=== PATIENT | male | born 1945 | race Two or more races ===

== ENCOUNTER 2018-06-19 12:36 | Inpatient (IN) | payer MEDICARE, MEDICAID ==
[~2018-06-19] VITALS: Ht 167.6 cm; Wt 73.5 kg
--- NOTE | 2018-06-19 12:36 | NUR ---
BIB FOR CHEST PAIN SINCE LAST NIGHT STATED "ABOUT 3AM", TO ER BED 4, HOOKED TO MONITOR, CHANGED TO GWN, RECONSTRUCTIVE SURGEON AT BEDSIDE. AWAITING MD ELIZABETH
--- NOTE | 2018-06-19 13:06 | NUR ---
DR BARROS AT BEDSIDE
[2018-06-19 13:22] LABS: BASOPHILS % (AUTO) 0.5 % (0.0-2.0); EOSINOPHILS % (AUTO) 1.3 % (0.0-6.0); HEMATOCRIT 52 % (39-51); HEMOGLOBIN 17.4 g/dL (13.5-17.5); LYMPHOCYTES # (AUTO) 1.8 /CMM (0.8-4.8); LYMPHOCYTES % (AUTO) 25.2 % (20.0-44.0); MEAN CORPUSCULAR HGB CONC 34 g/dl (31.0-36.0); MEAN CORPUSCULAR VOLUME 91 fL (80-96); MONOCYTES # (AUTO) 0.5 /CMM (0.1-1.30); MONOCYTES % (AUTO) 6.4 % (2.0-12.0); NEUTROPHILS # (AUTO) 4.7 /CMM (1.8-8.9); NEUTROPHILS % (AUTO) 66.6 % (43.0-81.0); PLATELET COUNT (AUTO) 203 /CMM (150-450); RED BLOOD CELL COUNT(AUTO) 5.71 MIL/uL (4.5-6.0); WHITE BLOOD COUNT (AUTO) 7.1 K/uL (4.3-11.0)
[2018-06-19 13:28] LABS: CALCIUM, SERUM 8.7 mg/dL (8.5-10.1); CARBON DIOXIDE 31 mmol/L (21-32); CHLORIDE 104 mmol/L (98-107); CREATININE 1.3 mg/dL (0.6-1.3); GLUCOSE 107 mg/dL (74-106); SODIUM SERUM 140 mmol/L (136-145); UREA NITROGEN, BLOOD 16 mg/dL (7-18)
[2018-06-19] MEDS ORDERED: NITROGLYCERIN 0.4 MG/TAB BOTTLE ONE (13:29)
[2018-06-19] MEDS ORDERED: MORPHINE SULFATE INJ 4 MG/ML DISP.SYRIN ONE (13:29)
[2018-06-19] MEDS ORDERED: ONDANSETRON HCL/PF 4 MG/2 ML VIAL ONE (13:29)
[2018-06-19] MEDS ORDERED: ASPIRIN 325 MG TABLET ONE (13:30)
[2018-06-19] MEDS ORDERED: METOPROLOL TARTRATE 50 MG TABLET ONE (13:40)
[2018-06-19] MEDS ORDERED: IV NS 0.9% 500 ML BAG IV ONE (14:00)
[2018-06-19] MEDS ORDERED: METOPROLOL TARTRATE 25 MG TABLET PO ONE (14:00)
[2018-06-19] MEDS ORDERED: ASPIRIN 325 MG TABLET PO ONE (14:00)
[2018-06-19] MEDS ORDERED: ONDANSETRON HCL/PF 4 MG/2 ML VIAL IVP ONE (14:00)
[2018-06-19] MEDS ORDERED: NITROGLYCERIN 0.4 MG/TAB BOTTLE SL ONE (14:00)
[2018-06-19] MEDS ORDERED: MORPHINE SULFATE INJ 2 MG/ML DISP.SYRIN IV ONE (14:00)
[2018-06-19] MEDS ORDERED: OLME20TA13 PO (14:06)
--- NOTE | 2018-06-19 14:45 | NUR ---
PT WHEELED OUT VIA [facility] FOR CTA
[2018-06-19] MEDS ORDERED: CT SWABBABLE VALVE TRANS SET 1 EA INFUS.SET MC ONE (14:50)
[2018-06-19] MEDS ORDERED: IOHEXOL-350 100 ML VIAL IV ONE (14:50)
[2018-06-19] MEDS ORDERED: IV NS 0.9% 250 ML IV ONE (14:50)
[2018-06-19] MEDS ORDERED: KETOROLAC TROMETHAMINE INJ 30 MG/ML VIAL IV ONE (15:00)
[2018-06-19] MEDS ORDERED: KETOROLAC TROMETHAMINE 15 MG/ML VIAL ONE (15:00)
--- NOTE | 2018-06-19 15:19 | NUR ---
REPORT GIVEN TO KIARA OWENS OF TELE UNIT
--- NOTE | 2018-06-19 15:51 | NUR ---
CALLED [facility], HAD ALEJANDRO STOUT PAGED
[2018-06-19 16:00] VITALS: BP 147/87
--- NOTE | 2018-06-19 16:19 | NUR ---
RAMON WANG AT BEDSIDE
[2018-06-19 16:45] VITALS: BP 147/87
[2018-06-19] MEDS ORDERED: MORPHINE SULFATE INJ 2 MG/ML DISP.SYRIN IV PRN (17:00)
[2018-06-19] MEDS ORDERED: ONDANSETRON HCL/PF 4 MG/2 ML VIAL IVP PRN (17:00)
[2018-06-19] MEDS ORDERED: NITROGLYCERIN 0.4 MG/TAB BOTTLE SL PRN (17:00)
[2018-06-19] MEDS ORDERED: HYDROCODONE/APAP 5/325MG 1 EACH TABLET PO PRN (17:00)
[2018-06-19] MEDS ORDERED: ACETAMINOPHEN 325 MG TABLET PO PRN (17:00)
[2018-06-19] MEDS ORDERED: Z GUARD REMEDY 2 OZ OINT TP PRN (17:00)
[2018-06-19] MEDS ORDERED: MAG HYDROX/AL HYDROX/SIMETH 30 ML UDC PO PRN (17:00)
[2018-06-19] MEDS ORDERED: MAGNESIUM HYDROXIDE 30 ML UDC PO PRN (17:00)
--- NOTE | 2018-06-19 17:20 | NUR ---
MOBILE LOUNGE DRIVER ADMITTING NOTES RECEIVED PT FROM ER VIA [facility] WITH 2 NURSE ASSIST. ARRIVED AT THE UNIT AT 1630. PT ABLE TO WALK FROM [facility] TO BED. PT A/O X 4, URDU SPEAKING, ABLE TO UNDERSTAND AND SPEAK A LITTLE BIT OF WOLOF. TOLERATING RA, WITH NO ACUTE RESPIRATORY DISTRESS NOTED. PT DENIES PAIN AT THIS MOMENT. DENIES CHEST PAIN AND N/V. PT ACCOMPANIED BY SPOUSE. ON TELEMONITORING NSR WITH OCCASIONAL PVCS, HR OF 63. PT REFUSED FOR SKIN TO BE ASSESSED AND CLAIMED HE HAS INTACT SKIN, NO ANY KINDS OF WOUND. EXPLAINED PER FACILITY PROTOCOL AND STILL REFUSED. PIV TO LAC G20, FLUSHED WITH NS, INTACT AND OPERATIONAL. ADMISSION HISTORY/ASSESSMENT PROVIDED BY PT AND SPOUSE BEDSIDE. ALL NEEDS ATTENDED. MD/BUTCHER MEAT CN AWARE PT IN THE UNIT, PLACED ORDERS. INVENTORY LIST FILED IN THE CHART. PT'S BED KEPT IN LOWEST, LOCKED POSITION WITH SRX2. KEPT CALL LIGHT AND FLUIDS WITHIN REACH. WILL CONTINUE TO MONITOR.
--- NOTE | 2018-06-19 19:00 | NUR ---
CLOTHING MANAGER CLOSING NOTES PT IN BED, SITTING ON THE EDGE OF THE BED. A/O X 4. 3 FAMILY MEMBERS PRESENT BEDSIDE. TOLERATING RA, WITH NO ACUTE RESPIRATORY DISTRESS NOTED. PT DENIES PAIN AT THIS MOMENT. DENIES CHEST PAIN AND N/V. ON TELEMONITORING NSR WITH OCCASIONAL PVCS, HR OF 61. PIV TO LAC G20, FLUSHED WITH NS, INTACT AND OPERATIONAL. ALL NEEDS ATTENDED. PT'S BED KEPT IN LOWEST, LOCKED POSITION WITH SRX2. KEPT CALL LIGHT AND FLUIDS WITHIN REACH. ENDORSED TO GROCERY MANAGER NURSE FOR MILA.
--- NOTE | 2018-06-19 19:15 | NUR ---
RN Notes Received patient awake, alert and oriented x4, sitting at the edge of the bed with family at bedside. Denies pain and any discomfort at this time. On room air and tolerated well. IV access on left forearm patent and intact. Patient is ambulatory with steady gait. Safety measures and fall precaution in place with call light within reach. Will continue to monitor patient.
[2018-06-19 20:00] VITALS: BP 123/74
[2018-06-19 22:00] VITALS: BP 123/74
[2018-06-20 04:00] VITALS: BP 135/76
--- NOTE | 2018-06-20 06:46 | NUR ---
RN Notes Patient slept well overnight, vital signs stable. Denies pain , nausea and vomiting. Tele monitor reads sinus cecil with heart rate at 56. Ambulate to the bathroom with steady gait, voiding well. Patient stable overnight.
--- NOTE | 2018-06-20 06:54 | NUR ---
RN Notes Seen and examined by Dr Tejada, new orders received. Tele d/c'd and patient for CT angio heart with 3D image, patient aware. Noted and carried out
[2018-06-20 07:33] LABS: BASOPHILS % (AUTO) 0.6 % (0.0-2.0); EOSINOPHILS % (AUTO) 2.5 % (0.0-6.0); HEMATOCRIT 46 % (39-51); HEMOGLOBIN 15.7 g/dL (13.5-17.5); LYMPHOCYTES # (AUTO) 2.2 /CMM (0.8-4.8); LYMPHOCYTES % (AUTO) 33.2 % (20.0-44.0); MEAN CORPUSCULAR HGB CONC 34 g/dl (31.0-36.0); MEAN CORPUSCULAR VOLUME 89 fL (80-96); MONOCYTES # (AUTO) 0.5 /CMM (0.1-1.30); MONOCYTES % (AUTO) 7.4 % (2.0-12.0); NEUTROPHILS # (AUTO) 3.8 /CMM (1.8-8.9); NEUTROPHILS % (AUTO) 56.3 % (43.0-81.0); PLATELET COUNT (AUTO) 170 /CMM (150-450); WHITE BLOOD COUNT (AUTO) 6.7 K/uL (4.3-11.0)
[2018-06-20 07:49] LABS: CALCIUM, SERUM 8.2 mg/dL (8.5-10.1); CARBON DIOXIDE 27 mmol/L (21-32); CHLORIDE 106 mmol/L (98-107); CREATININE 1.1 mg/dL (0.6-1.3); GLUCOSE 89 mg/dL (74-106); PHOSPHORUS 3.5 mg/dL (2.5-4.9); POTASSIUM 4.1 mmol/L (3.5-5.1); SODIUM SERUM 140 mmol/L (136-145); UREA NITROGEN, BLOOD 18 mg/dL (7-18)
[2018-06-20 07:54] LABS: CHOLESTEROL 190 mg/dL (<200); HDL CHOLESTEROL 57 mg/dL (40-60); LDL 127 mg/dL (0-99); THYROID STIMULATING HORMONE 2.144 uIU/mL (0.358-3.74); TRIGLYCERIDES 57 mg/dL (30-150)
[2018-06-20 08:00] VITALS: BP 135/88
[2018-06-20] MEDS ORDERED: ASPIRIN 81 MG TAB.CHEW PO SCH (09:00)
[2018-06-20] MEDS ORDERED: ATORVASTATIN 10 MG TABLET PO SCH (09:00)
[2018-06-20] MEDS ORDERED: LOSARTAN POTASSIUM 50 MG TABLET PO SCH (09:00)
[2018-06-20 09:49] VITALS: BP 135/88
[2018-06-20] MEDS ORDERED: IOHEXOL-350 100 ML VIAL IV ONE ×2 (11:29→12:11)
[2018-06-20] MEDS ORDERED: NITROGLYCERIN 0.4 MG/TAB BOTTLE ONE (11:29)
[2018-06-20] MEDS ORDERED: IV NS 0.9% 250 ML IV ONE (11:30)
[2018-06-20] MEDS ORDERED: METOPROLOL TARTRATE INJ 5 MG/5 ML AMPUL ONE ×2 (11:30→12:17)
[2018-06-20] MEDS ORDERED: CT SWABBABLE VALVE TRANS SET 1 EA INFUS.SET MC ONE (11:31)
--- NOTE | 2018-06-20 11:45 | NUR ---
RN MS OPENING NOTES Patient remains on room air, no sob noted. Patient transferred to [facility]. Patient denies pain, patient signed the CT angiogram with 3d image. Patient remains a/o x4. Patient's bed at the lowest setting, call light within reach.
[2018-06-20] MEDS ORDERED: ATOR20TA PO (16:22)
[2018-06-20] MEDS ORDERED: ASPI-1169 PO (16:22)
--- NOTE | 2018-06-20 18:29 | NUR ---
LICENSED PRACTICAL NURSE INSTRUCTOR NOTES Patient discharged on room air, no sob noted. Vital signs stable. Patient's belonging is with him at this time, cell phone, clothing, and 1 gold ring. Patient denies any pain at this time. Patient has the discharge paper works with instructions from his physician, and he also has the prescription for his medications. All questions answered, and patient and understands the discharge instruction from their PCP.
== END 2018-06-20 17:26 | disposition home or self-care (01) | DRG 303 ==
LOC: ER 12:38 → TELE 15:00 → MED 06-20 07:30
PROVIDERS: ADMIT Nurse Practitioner Acute Care; ATTEND Nurse Practitioner Acute Care
DX: I25.10 Atherosclerotic heart disease of native coronary artery without angina pectoris (principal); J98.11 Atelectasis; R07.9 Chest pain, unspecified; I11.0 Hypertensive heart disease with heart failure; I50.810 Right heart failure, unspecified; K80.20 Calculus of gallbladder without cholecystitis without obstruction; E78.5 Hyperlipidemia, unspecified; I27.20 Pulmonary hypertension, unspecified; R91.8 Other nonspecific abnormal finding of lung field
CPT/HCPCS: 36415; 71045-TC; 75574; 80048-TC; 80061-TC; 83735-TC; 84100-TC; 84443-TC; 84484-TC; 85025-TC; 85378-TC; 85730-TC; 87081-TC; 93307-TC; G0378; J1885; J2270; J2405; J3490; J7040; J7050; Q9967

== ENCOUNTER 2019-12-05 18:19 | Inpatient (IN) | payer MEDICARE, OTHER ==
[~2019-12-05] VITALS: Ht 170.2 cm; Wt 65.8 kg
[~2019-12-05 18:19] MED LIST: ASPI-1169 PO; ATOR20TA PO; OLME20TA13 PO
--- NOTE | 2019-12-05 18:28 | NUR ---
PT BIBRA FROM HOME TO ER BED 03 C/O SUDDEN ONSET MIDSTERNAL CHESTPAIN THAT STARTED 2 HOURS AGO. PT STATES WORST WHEN BENDING OVER. PT IS PAIN FREE AUDIO VISUAL DESIGN ENGINEER AFTER GETTING ASPIRIN AND NITRO AUDIO VISUAL DESIGN ENGINEER. PLACED ON MONITOR. AWAITING MD ELIZABETH.
--- NOTE | 2019-12-05 18:30 | NUR ---
DR BOBBY AT BEDSIDE FOR EVAL.
[2019-12-05 18:51] LABS: BASOPHILS % (AUTO) 0.4 % (0.0-2.0); EOSINOPHILS % (AUTO) 1.5 % (0.0-6.0); HEMATOCRIT 42 % (39-51); HEMOGLOBIN 13.7 g/dL (13.5-17.5); LYMPHOCYTES # (AUTO) 1.4 /CMM (0.8-4.8); LYMPHOCYTES % (AUTO) 15.9 % (20.0-44.0); MEAN CORPUSCULAR HGB CONC 33 g/dl (31.0-36.0); MEAN CORPUSCULAR VOLUME 91 fL (80-96); MONOCYTES # (AUTO) 0.7 /CMM (0.1-1.30); MONOCYTES % (AUTO) 7.5 % (2.0-12.0); NEUTROPHILS # (AUTO) 6.6 /CMM (1.8-8.9); NEUTROPHILS % (AUTO) 74.7 % (43.0-81.0); PLATELET COUNT (AUTO) 166 /CMM (150-450); RED BLOOD CELL COUNT(AUTO) 4.65 MIL/uL (4.5-6.0); WHITE BLOOD COUNT (AUTO) 8.9 K/uL (4.3-11.0)
[2019-12-05 18:57] LABS: CALCIUM, SERUM 8.5 mg/dL (8.5-10.1); CARBON DIOXIDE 31 mmol/L (21-32); CHLORIDE 102 mmol/L (98-107); CREATININE 1.2 mg/dL (0.6-1.3); GLUCOSE 114 mg/dL (74-106); SODIUM SERUM 139 mmol/L (136-145); UREA NITROGEN, BLOOD 22 mg/dL (7-18)
[2019-12-05] MEDS ORDERED: ASPIRIN 325 MG TABLET PO ONE (19:00)
[2019-12-05 19:10] LABS: ALANINE AMINOTRANSFERASE 48 U/L (12-78); ALBUMIN 3.1 g/dL (3.4-5.0); ALKALINE PHOSPHATASE 69 U/L (46-116); ASPARTATE AMINOTRANSFERASE 32 U/L (15-37); B-TYPE NATRIURETIC PEPTIDE 176 PG/ML (0-125); BILIRUBIN,DIRECT 0.2 mg/dL (0.0-0.2); BILIRUBIN,TOTAL 1.2 mg/dL (0.2-1.0); TOTAL PROTEIN, SERUM 6.6 g/dL (6.4-8.2)
[2019-12-05] MEDS ORDERED: CARV3.122 PO (19:27)
[2019-12-05] MEDS ORDERED: ASPI-1420 PO (19:27)
[2019-12-05] MEDS ORDERED: ATOR40TA PO (19:27)
[2019-12-05] MEDS ORDERED: TICA90TA PO (19:27)
[2019-12-05] MEDS ORDERED: DOCU-141 PO (19:27)
[2019-12-05] MEDS ORDERED: LISI40TA4 PO (19:27)
--- NOTE | 2019-12-05 19:36 | NUR ---
PT AAOX4, VSS,RESPIRATIONS EVEN AND UNLABORED ON RA W/ NAD NOTED. PT CONNECTED TO THE BAKER TEST AND POX. CALL LIGHT WITHIN REACH
--- NOTE | 2019-12-05 19:40 | NUR ---
REPORT GIVEN TO AMERICA OWENS FOR MILA.
--- NOTE | 2019-12-05 20:51 | NUR ---
COVID SWAB COLLECTED AND SENT TO LAB
--- NOTE | 2019-12-05 21:12 | NUR ---
REC'D NEG COVID RESULTS
--- NOTE | 2019-12-05 21:46 | NUR ---
PT TRANSFERRED TO ROOM VIA ACLS PROTOCOL
[2019-12-05 21:57] VITALS: BP 168/87
[2019-12-05 22:00] VITALS: BP 168/87
[2019-12-05] MEDS ORDERED: MAGNESIUM HYDROXIDE 30 ML UDC PO PRN (22:00)
[2019-12-05] MEDS ORDERED: ACETAMINOPHEN 325 MG TABLET PO PRN (22:00)
[2019-12-05] MEDS: CARVEDILOL 3.125 MG TABLET PO SCH (22:00)
[2019-12-05] MEDS ORDERED: ONDANSETRON HCL/PF 4 MG/2 ML VIAL IVP PRN (22:00)
[2019-12-05] MEDS ORDERED: HYDROCODONE/APAP 5/325MG TABLET PO PRN (22:00)
[2019-12-05] MEDS: TICAGRELOR 90 MG TABLET PO SCH (22:00)
[2019-12-05] MEDS ORDERED: MAG HYDROX/AL HYDROX/SIMETH 30 ML UDC PO PRN (22:00)
[2019-12-05] MEDS ORDERED: MORPHINE SULFATE INJ 2 MG/ML DISP.SYRIN IV PRN (22:00)
[2019-12-05] MEDS ORDERED: ZOLPIDEM TARTRATE 5 MG TABLET PO PRN (22:00)
[2019-12-05] MEDS ORDERED: Z GUARD REMEDY 2 OZ OINT TP PRN (22:00)
[2019-12-05] MEDS ORDERED: DOCUSATE SODIUM 100 MG CAPSULE PO PRN (22:00)
--- NOTE | 2019-12-05 22:17 | NUR ---
RN NOTES: EKG BEING PERFORMED AT BEDSIDE.
--- NOTE | 2019-12-05 22:18 | NUR ---
ADMISSION NOTES: PT BROUGHT TO THE UNIT VIA GURNEY, PT TRANSFERRED TO THE BED. A/O X4, ON RA RESPIRATIONS EVEN AND UNLABORED. PT STILL C/O CHEST PRESSURE ESPECIALLY ON LEFT RIB AREA AND MIDDLE CHEST 05/19. IV ACCESS PATENT AND FLUSHING WELL, ON HL. CONNECTED TO TELE MONITORING , SKIN ASSESSMENT PERFORMED, NO SKIN ISSUES NOTED. INVENTORY OF BELONGINGS PERFORMED BY BELA MAGAÑA. ALL ADMISSION QUESTIONS ANSWERED BY PT HIMSELF. VERIFIED ALL MEDICATIONS WITH PT. DISCUSSED PLAN OF CARE. PT AGREE AND UNDERSTAND. VS TAKEN AND RECORDED. ORIENTED TO USE OF CALL LIGHT, HOSPITAL POLICY AND HOURLY ROUNDING. SAFETY PRECAUTIONS FOR FALL INITAITED, CALL LIGHT IN REACH, WILL CONTINUE MONITORING PT.
--- NOTE | 2019-12-05 22:36 | NUR ---
RN NOTES: AWAITING FOR PHARMACY TO VERIFY MEDICATION.
[2019-12-05] MEDS: ATORVASTATIN 40 MG TABLET PO SCH (23:13)
--- NOTE | 2019-12-05 23:16 | NUR ---
NON ADMIN OF MEDICATIONS: PT STATED HE ALREADY TAKEN BRILINTA, COREG, PRINIVIL TODAY AT HOME, AND THE ONLY ONE HE HASN'T TAKEN IS LIPITOR. PT REFUSED TO TAKE THE MEDICATIONS.
--- NOTE | 2019-12-05 23:19 | NUR ---
RN NOTES: PT STILL HAVE CHEST PRESSURE PAIN MOSTLY ON LEFT RIB AREA 05/19, OFFERED MORPHINE, PT REFUSED, STATED HE PREFERS NITROGLYCERIN.
[2019-12-05 23:20] VITALS: BP 168/80
[2019-12-05] MEDS: NITROGLYCERIN 0.4 MG/TAB BOTTLE SL PRN ×2 (23:22→23:25)
--- NOTE | 2019-12-05 23:25 | NUR ---
NON ADMIN NITRO SL: OPENED BOTTLE OF NITRO GLYCERIN, AFTER HANDLING THE MEDICINE TO PT, PT CHANGED HIS MIND, AND STATED, HE TOOK 5 DOSES OF NITRO TODAY, AND HE DOESN'T WANT TO TAKE ANYMORE. INFORMED PT, HE HAS TWO OPTIONS FOR CHEST PAIN MEDICATION, PT STATED HE DOESNT WANT NITROGLYCERIN AND HE DOESNT WANT MORPHINE, BUT AGREE TO TAKE LISINOPRIL. EDUCATION PROVIDED TO PT.
[2019-12-05] MEDS: LISINOPRIL (10MG) 10 MG TABLET PO SCH (23:31)
[2019-12-06] VITALS (7 sets, daily range): BP systolic 119–168; BP diastolic 68–96
--- NOTE | 2019-12-06 | NUR ---
RN NOTES: ]PT REFUSED WEARING HOSPITAL GOWN AND REFUSED SCD, EDUCATION PROVIDED TO PT REGARDING RISK AND BENEFIT
--- NOTE | 2019-12-06 01:09 | NUR ---
rn notes: received call from lab, stated they missed troponin draw for 2344, informed lab to just please draw now and adjust the next troponin draw after 6hrs series.
--- NOTE | 2019-12-06 03:19 | NUR ---
RN NOTES: EKG BEING DONE AT BED SIDE
[2019-12-06 06:40] LABS: BASOPHILS % (AUTO) 0.4 % (0.0-2.0); EOSINOPHILS % (AUTO) 2.9 % (0.0-6.0); HEMATOCRIT 43 % (39-51); HEMOGLOBIN 14.3 g/dL (13.5-17.5); LYMPHOCYTES # (AUTO) 1.7 /CMM (0.8-4.8); LYMPHOCYTES % (AUTO) 20.9 % (20.0-44.0); MEAN CORPUSCULAR HGB CONC 33 g/dl (31.0-36.0); MEAN CORPUSCULAR VOLUME 89 fL (80-96); MONOCYTES # (AUTO) 0.7 /CMM (0.1-1.30); NEUTROPHILS # (AUTO) 5.5 /CMM (1.8-8.9); NEUTROPHILS % (AUTO) 66.8 % (43.0-81.0); PLATELET COUNT (AUTO) 143 /CMM (150-450); RED BLOOD CELL COUNT(AUTO) 4.84 MIL/uL (4.5-6.0); WHITE BLOOD COUNT (AUTO) 8.3 K/uL (4.3-11.0)
--- NOTE | 2019-12-06 06:55 | NUR ---
END OF SHIFT REPORT: PT REMAINS ON 2L OXYGEN VIA NC, STILL C/O CHEST PRESSURE MORE PROMINENT ON LEFT RIB AREA 05/19, DENIES ANY RADIATION TO OTHER PART OF THE BODY, ACCDG TO PT WHEN HES AT REST, THERE IS NO CHEST PAIN, BUT WHEN HE BEND HIS HEAD FORWARD, CHEST PAIN ARISE. PS 05/19. AWARE OF HIS PAIN MEDICATION (MORPHINE AND NITROGLYCERIN SL), HOWEVER PT REFUSED. OFFERED MULTIPLE TIMES AND PT STATED HES OKAY, DOESNT WANT ANY MEDICINE. TELE MONITORING SINUS RHYTHM WITH BBB HR 65. CARDIO CONSULT AND SERIAL TROPONIN AND EKG ORDERED. VS REMAINS STABLE, NEEDS ATTENDED. SAFETY PRECAUTIONS FOR FALL REMAINS ENGAGED, CALL LIGHT IN REACH, WILL ENDORSE TO DAY RN FOR CONTINUITY OF CARE.
[2019-12-06 07:10] LABS: CALCIUM, SERUM 8.2 mg/dL (8.5-10.1); MAGNESIUM 2.1 mg/dL (1.8-2.4); PHOSPHORUS 3.2 mg/dL (2.5-4.9); POTASSIUM 3.9 mmol/L (3.5-5.1)
--- NOTE | 2019-12-06 07:12 | NUR ---
MS RN NOTES PATIENT IN BED ALERT ORIENTED X 3 . NO ACUTE DISTRESS NOTED. BREATHING UNLABORED. NO SOB NOTED. DENIED ANY PAIN AT THIS TIME. IV ACCESS PATENT AND INTACT, NO REDNESS, NO BLEEDING, NO SWELLING NOTED. SAFETY MEASURES IN PLACE. WILL CONTINUE TO MONITOR ACCORDINGLY.
[2019-12-06 07:18] LABS: THYROID STIMULATING HORMONE 1.462 uIU/mL (0.358-3.74)
[2019-12-06] MEDS: METOPROLOL TARTRATE INJ 5 MG/5 ML AMPUL IVP PRN ×3 (07:38→07:48)
[2019-12-06] MEDS: ENOXAPARIN SODIUM 40 MG/0.4 ML DISP.SYRIN SQ SCH (09:00)
[2019-12-06] MEDS: ATORVASTATIN 40 MG TABLET PO SCH (09:22)
[2019-12-06] MEDS: ASPIRIN EC 81 MG TABLET.DR PO SCH (09:26)
[2019-12-06] MEDS: TICAGRELOR 90 MG TABLET PO SCH ×2 (09:30→16:31)
[2019-12-06] MEDS: CARVEDILOL 3.125 MG TABLET PO SCH (09:36)
[2019-12-06] MEDS: LISINOPRIL (10MG) 10 MG TABLET PO SCH (09:36)
--- NOTE | 2019-12-06 19:00 | NUR ---
MS RN NOTES PATIENT IN BED ALERT ORIENTED X 3 . NO ACUTE DISTRESS NOTED. BREATHING UNLABORED. NO SOB NOTED.DENIED ANY PAIN AT THIS TIME IV ACCESS PATENT AND INTACT, NO REDNESS, NO BLEEDING, NO SWELLING NOTED. NEEDS ATTENDED AND ANTICIPATED. SAFETY MEASURES IN PLACE. CALL LIGHT WITHIN REACH WILL ENDORSE TO NIGHT NURSE FOR CONTINUITY OF CARE .
[2019-12-06] MEDS ORDERED: CT SWABBABLE VALVE TRANS SET 1 EA INFUS.SET MC ONE (19:24)
[2019-12-06] MEDS ORDERED: IOHEXOL-350 100 ML VIAL IV ONE (19:24)
[2019-12-06] MEDS ORDERED: IV NS 0.9% 250 ML IV ONE (19:24)
[2019-12-06] MEDS ORDERED: NITROGLYCERIN 4.9 GM SPRAY SL PRN ×2 (19:30→20:30)
--- NOTE | 2019-12-06 19:30 | NUR ---
RN NOTES: PT WAS WOOD FLOORING SPECIALIST FOR CTCA TODAY.
--- NOTE | 2019-12-06 20:01 | NUR ---
RN NOTES: PT BACK TO THE UNIT. CTCA DONE.
--- NOTE | 2019-12-06 20:11 | NUR ---
RN NOTES: RECEIVED CALL FROM [facility], STATING ORDER FOR NITRO 0.4GM SPRAY AND LOPRESSOR INJ, STATED IT NEEDS TO BE CLARIFIED WITH MD ORDER WAS PLACED INCORRECTLY. INFORMED PT WENT FOR CTCA AND JUST CAME BACK TO THE UNIT, INFORMED PROCEDURE IS DONE. [facility] STATED IT STILL NEEDS TO BE FIXED AND CLARIFIED, AND WOULD LIKE TO SPEAK WITH OFF TRACK BETTING MANAGER. CALL WAS THEN TRANSFERRED TO GRACIELA RICARDO, RELAYED SITUATION. AT THE MOMENT, WANDA CT STAFF WENT TO THE UNIT, INFORMED OF THE SITUATION. SHE STATED SHE WILL FIX THE ORDER.
--- NOTE | 2019-12-06 20:31 | NUR ---
RN NOTES: PT WANTING TO GO HOME TONIGHT, HE CLAIMED THE DOCTOR PROMISED HIM THAT CTCA RESULT IS POSTED IN 30MINS AND HE CAN GO HOME AFTER. SPOKED WITH PT AND PT'S DAUGHTER FELICIA, EXPLAINED THAT OF NOW WE HAVE NO RESULT YET FOR CTCA, ALSO THERE IS NO ORDER YET FROM DERMATOLOGIST MANAGING PARTNER AND THAT I CANNOT PROMISE ANYTHING TO WHETHER PT CAN BE DC TONIGHT. PT EXPRESS HE REALLY WANTED TO GO HOME. EXPLAINED TO PT RISK AND BENEFIT OF LEAVING AGAINST MEDICAL ADVICE VS STAYING IN THE HOSPITAL. PT AND FAMILY EXPRESSES UNDERSTANDING. PRODUCTION LINE TECHNICIAN JESSICA MADE AWARE.
--- NOTE | 2019-12-06 20:42 | NUR ---
RN NOTES: PT A/O X4, ON RA RESPIRATIONS EVEN AND UNLABORED. IV ACCESS PATENT AND FLUSHING WELL, ON HL. DENIES ANY CHEST PAIN OR DISCOMFORT AT THIS TIME. SAFETY PRECAUTIONS FOR FALL INITIATED, CALL LIGHT IN REACH, WILL CONTINUE MONITORING PT.
--- NOTE | 2019-12-06 22:34 | NUR ---
RN NOTES: NOTIFIED [facility] MD HOSPITALIST REGARDING PT'S EXPRESSING GOING HOME, AND KATHY'S NOTE OKAY TO BE DC WHEN CLEARED BY GRINDER SET UP OPERATOR JIG AFTER CTCA. CTCA DONE BUT NO RESULT POSTED IN THE COMPUTER AND THERE IS NOT NOTES ON GRINDER SET UP OPERATOR JIG THAT OKAY TO BE DC AFTER PROCEDURE, PLUS NO ORDERS RECEIVED AFTER PROCEDURE. PER [facility] HOSPITALIST TO WAIT FOR GRINDER SET UP OPERATOR JIG IN AM.
--- NOTE | 2019-12-07 06:44 | NUR ---
End of shift report: Pt denies any chest pain throughout the shift. Iv access remains patent and flushing well, on hl. Still pending result of ctca. No untoward event happened throughout the shift. Vs remains stable, needs attended. Safety precautions for fall remains engaged, call light in reach, will endorse to day rn for continuity of care.
--- NOTE | 2019-12-07 07:30 | NUR ---
MS/RN OPENING NOTE Received patient resting in bed, A&O x 4. No complaints of pain and discomfort at this time. Breathing even and non-labored on RA. No respiratory or cardiac distress noted. IV access located on LAC #18 g, patent and intact and flushing well. Sensation from all peripheral extremities intact. Bed locked to its lowest position, side rails x 2 up, call light in hand. Instructed patient to use call light when in need of assistance. Will continue with current medical management.
[2019-12-07 08:45] VITALS: BP 152/86
[2019-12-07] MEDS: LISINOPRIL (10MG) 10 MG TABLET PO SCH (08:52)
[2019-12-07] MEDS: TICAGRELOR 90 MG TABLET PO SCH (08:52)
[2019-12-07 08:53] VITALS: BP 152/86
[2019-12-07] MEDS: CARVEDILOL 3.125 MG TABLET PO SCH (08:53)
[2019-12-07] MEDS: ASPIRIN EC 81 MG TABLET.DR PO SCH (08:53)
[2019-12-07] MEDS: ATORVASTATIN 40 MG TABLET PO SCH (08:53)
[2019-12-07] MEDS: ENOXAPARIN SODIUM 40 MG/0.4 ML DISP.SYRIN SQ SCH (08:57)
--- NOTE | 2019-12-07 13:05 | NUR ---
MS/TRIPLE VALVE TESTER NOTES Patient picked up by and daughter Jaylin at 1305. Pt remained stable throughout shift, VSS, afebrile, no SOB noted. No complaints of pain/discomfort noted. No respiratory or cardiac distress noted. Patient denies any chest pain, states he is "feeling good." IV access on LAC #18 g removed. No s/s of infection, bleeding, or infiltration noted on site. Placed clean dry dressing. No skin impairments noted upon discharge. Sensation from all peripheral extremities intact. Instructed patient about discharge instructions and answered all his questions to his satisfaction, patient verbalized understanding. Patient left safely with all belongings and hospital documents in hand.
== END 2019-12-07 13:05 | disposition home or self-care (01) | DRG 302 ==
LOC: ER 18:38 → TELE 21:11 → MED 12-06 17:53
PROVIDERS: ATTEND Nurse Practitioner Acute Care
DX: I25.10 Atherosclerotic heart disease of native coronary artery without angina pectoris (principal); N17.0 Acute kidney failure with tubular necrosis; E78.5 Hyperlipidemia, unspecified; I10 Essential (primary) hypertension; Z95.5 Presence of coronary angioplasty implant and graft; K80.20 Calculus of gallbladder without cholecystitis without obstruction; R91.8 Other nonspecific abnormal finding of lung field
CPT/HCPCS: 36415; 71045-TC; 75574; 80048-TC; 80061-TC; 80076-TC; 83735-TC; 83880; 84100-TC; 84443-TC; 84484-TC; 85025-TC; 85730-TC; 87081-TC; 93307-TC; C9803-CS; G0378; J1650; J3490; J7050; Q9967

== ENCOUNTER 2021-04-30 20:56 | Inpatient (IN) | payer MEDICARE, OTHER ==
[~2021-04-30] VITALS: Ht 167.6 cm; Wt 72.6 kg
[~2021-04-30 20:56] MED LIST changes: -ASPI-1169 PO; +ASPI-1420 PO; -ATOR20TA PO; +ATOR40TA PO; +CARV3.122 PO; +DOCU-141 PO; +LISI40TA13 PO; -OLME20TA13 PO; +TICA90TA PO
--- NOTE | 2021-04-30 21:14 | NUR ---
BIBS C/O MIDSTERNAL CP SINCE 2PM, TOOK NITRO @2PM WITH SOME RELIEF AND 1 HOUR CHIN STRAP SEWER. PATIENT ALERT AND ORIENTED X3. AMBULATORY WITH NON LABORED BREATHING. PLACED IN BED 03 ON MONITOR AND POX.
--- NOTE | 2021-04-30 21:22 | NUR ---
RAC #18G S/L; PATENT AND INTACT. BLOOD COLLECTED AND GIVEN TO LAB
[2021-04-30] MEDS ORDERED: ASPIRIN 81 MG TAB.CHEW ONE ×2 (21:26→21:29)
[2021-04-30] MEDS ORDERED: ASPIRIN 81 MG TAB.CHEW PO ONE (21:30)
--- NOTE | 2021-04-30 21:31 | NUR ---
ART THERAPIST AT PT'S BEDSIDE
[2021-04-30 21:39] LABS: BASOPHILS # (AUTO) 0.1 K/uL (0.0-0.2); BASOPHILS % (AUTO) 0.7 % (0.0-2.0); EOSINOPHILS % (AUTO) 4.4 % (0.0-6.0); HEMATOCRIT 45 % (39-51); HEMOGLOBIN 14.8 g/dL (13.5-17.5); LYMPHOCYTES # (AUTO) 1.6 K/uL (0.8-4.8); LYMPHOCYTES % (AUTO) 20.2 % (20.0-44.0); MEAN CORPUSCULAR HGB CONC 33 g/dl (31.0-36.0); MEAN CORPUSCULAR VOLUME 84 fL (80-96); MONOCYTES # (AUTO) 0.7 K/uL (0.1-1.30); MONOCYTES % (AUTO) 8.8 % (2.0-12.0); NEUTROPHILS # (AUTO) 5.1 K/uL (1.8-8.9); NEUTROPHILS % (AUTO) 65.9 % (43.0-81.0); PLATELET COUNT (AUTO) 165 K/uL (150-450); RED BLOOD CELL COUNT(AUTO) 5.35 MIL/uL (4.5-6.0); WHITE BLOOD COUNT (AUTO) 7.7 K/uL (4.3-11.0)
--- NOTE | 2021-04-30 21:57 | NUR ---
COVID ANTIGEN SWAB COLLECTED AND SENT TO LAB
[2021-04-30 22:12] LABS: CALCIUM, SERUM 8.4 mg/dL (8.5-10.1); CARBON DIOXIDE 28 mmol/L (21-32); CHLORIDE 101 mmol/L (98-107); CREATININE 1.3 mg/dL (0.6-1.3); GLUCOSE 112 mg/dL (74-106); POTASSIUM 4.1 mmol/L (3.5-5.1); SODIUM SERUM 136 mmol/L (136-145); UREA NITROGEN, BLOOD 19 mg/dL (7-18)
[2021-04-30] MEDS ORDERED: IOHEXOL-350 100 ML VIAL IV ONE (22:53)
--- NOTE | 2021-04-30 22:58 | NUR ---
PT TAKEN TO CT VIA EMY
[2021-04-30] MEDS ORDERED: MAGNESIUM HYDROXIDE 30 ML UDC PO PRN (23:30)
[2021-04-30] MEDS ORDERED: ACETAMINOPHEN 325 MG TABLET PO PRN (23:30)
[2021-04-30] MEDS ORDERED: MAG HYDROX/AL HYDROX/SIMETH 30 ML UDC PO PRN (23:30)
[2021-04-30] MEDS ORDERED: ONDANSETRON HCL/PF 4 MG/2 ML VIAL IVP PRN (23:30)
[2021-04-30] MEDS ORDERED: ZOLPIDEM TARTRATE 5 MG TABLET PO PRN (23:30)
[2021-04-30] MEDS ORDERED: DOCUSATE SODIUM 100 MG CAPSULE PO PRN (23:30)
[2021-04-30] MEDS ORDERED: Z GUARD REMEDY 4 OZ OINT TP PRN (23:30)
--- NOTE | 2021-04-30 23:34 | NUR ---
PT SEEN BY MARY BECERRA MANAGER MSW
--- NOTE | 2021-05-01 00:55 | NUR ---
ASSIGNED TO 324-1
--- NOTE | 2021-05-01 01:02 | NUR ---
REPORT GIVEN TO CARLOS Hogan RN FOR MILA
--- NOTE | 2021-05-01 02:30 | NUR ---
MAGICIAN/ILLUSIONISTLACQUER POLISHER NOTES PATIENT ARRIVED ON UNIT VIA GURNEY WITH ER NURSE. RECEIVED PATIENT LAYING AWAKE IN BED. A/O X4. PATIENT ON REGULAR AND UNLABORED BREATHING ON ROOM AIR, TOLERATED WELL. NO SIGNS OR SYMPTOMS OF DISTRESS NOTED AT THIS TIME. NO COMPLAINS OF PAIN OR DISCOMFORT AT THIS TIME. IV ACCESS RAC G #18 SL. IV ACCESS PATENT AND INTACT. SAFETY PRECAUTIONS ENFORCED WITH BED LOCKED AND AT LOWEST POSITION. SIDERAILS UP X2. CALL LIGHT WITHIN REACH AT ALL TIMES. WILL CONTINUE TO MONITOR PATIENT.
--- NOTE | 2021-05-01 02:38 | NUR ---
PT TRANSFERRED TO 324-1 VIA ACLS PROTOCOL. VSS. ALL BELONGINGS WITH PT.
[2021-05-01 02:40] VITALS: BP 152/80
[2021-05-01 07:28] LABS: BASOPHILS % (AUTO) 0.6 % (0.0-2.0); EOSINOPHILS % (AUTO) 4.2 % (0.0-6.0); HEMATOCRIT 42 % (39-51); HEMOGLOBIN 14.2 g/dL (13.5-17.5); LYMPHOCYTES # (AUTO) 1.7 K/uL (0.8-4.8); LYMPHOCYTES % (AUTO) 26.3 % (20.0-44.0); MEAN CORPUSCULAR HGB CONC 34 g/dl (31.0-36.0); MEAN CORPUSCULAR VOLUME 84 fL (80-96); MONOCYTES # (AUTO) 0.7 K/uL (0.1-1.30); MONOCYTES % (AUTO) 10.8 % (2.0-12.0); NEUTROPHILS # (AUTO) 3.9 K/uL (1.8-8.9); NEUTROPHILS % (AUTO) 58.1 % (43.0-81.0); PLATELET COUNT (AUTO) 143 K/uL (150-450); RED BLOOD CELL COUNT(AUTO) 5.03 MIL/uL (4.5-6.0); WHITE BLOOD COUNT (AUTO) 6.6 K/uL (4.3-11.0)
--- NOTE | 2021-05-01 07:30 | NUR ---
CREDIT ASSISTANT CLOSING NOTES PATIENT STILL LAYING AWAKE IN BED. A/O X4. PATIENT ON REGULAR AND UNLABORED BREATHING ON ROOM AIR, TOLERATED WELL. NO SIGNS OR SYMPTOMS OF DISTRESS NOTED AT THIS TIME. NO COMPLAINS OF PAIN OR DISCOMFORT AT THIS TIME. IV ACCESS RAC G #18 SL. IV ACCESS PATENT AND INTACT. SAFETY PRECAUTIONS ENFORCED WITH BED LOCKED AND AT LOWEST POSITION. SIDERAILS UP X2. CALL LIGHT WITHIN REACH AT ALL TIMES. WILL ENDORSE CONTINUITY OF CARE TO DAY SHIFT NURSE.
--- NOTE | 2021-05-01 07:34 | NUR ---
DATA MODELING SPECIALIST OPENING NOTE PT IN BED ASLEEP, EASY TO AROUSE. A/OX 4 PUERTO RICAN SPEAKING. NO S/SX OF ACUTE DISTRESS NOTED. NO C/O PAIN. BREATHING IS EVEN AND UNLABORED. ON ROOM AIR, TOLERATING WELL. PT NOTED WITH EXTERNAL HORTICULTURE WORKER-SR WITH PVC AND BVB. IV ACCESS RAC#18 PATENT AND INTACT, FLUSHES WELL. SAFETY MEASURES IN PLACE WITH BED LOCKED AND LOW POSITION WITH SIDE RAILS UP X 2. CALL LIGHT AND BEDSIDE TABLE WITHIN REACH. WILL CONTINUE TO MONITOR PATIENT THROUGHOUT SHIFT.
[2021-05-01 08:00] VITALS: BP 183/93
--- NOTE | 2021-05-01 08:00 | NUR ---
RN NOTE PTS B/P 183/[address] ELIAS AT BEDSIDE AND MADE AWARE.
[2021-05-01 08:16] LABS: CALCIUM, SERUM 8.1 mg/dL (8.5-10.1); CARBON DIOXIDE 29 mmol/L (21-32); CHLORIDE 104 mmol/L (98-107); CREATININE 1.1 mg/dL (0.6-1.3); GLUCOSE 84 mg/dL (74-106); PHOSPHORUS 3.1 mg/dL (2.5-4.9); POTASSIUM 3.8 mmol/L (3.5-5.1); SODIUM SERUM 139 mmol/L (136-145); UREA NITROGEN, BLOOD 16 mg/dL (7-18)
[2021-05-01] MEDS ORDERED: CARVEDILOL 3.125 MG TABLET PO SCH ×2 (09:00)
[2021-05-01] MEDS ORDERED: LISINOPRIL (20MG) 20 MG TABLET PO SCH (09:00)
[2021-05-01] MEDS ORDERED: ASPIRIN EC 81 MG TABLET.DR PO SCH (09:00)
[2021-05-01 10:04] LABS: CHOLESTEROL 103 mg/dL (<200); LDL 44 mg/dL (0-99); TRIGLYCERIDES 35 mg/dL (30-150)
[2021-05-01 10:35] LABS: HDL CHOLESTEROL 51 mg/dL (40-60)
[2021-05-01 12:00] VITALS: BP 142/79
--- NOTE | 2021-05-01 12:10 | NUR ---
RN NOTE PT LEFT AMA. EDUCATED IMPORTANCE OF RISKS VS BENEFITS; DESPITE EFFORTS, PT AND FAMILY WISHES TO LEAVE AMA TO [place] WHERE PT'S CAMPUS DIRECTOR IS. AMA FORM SIGNED. DR. ELIAS, DR. PALMER AND CHARGE NURSE, MARIBEL MADE AWARE. IV ACCESS AND ID BAND REMOVED.
[2021-05-01] MEDS ORDERED: TICAGRELOR 90 MG TABLET PO SCH (13:00)
[2021-05-01] MEDS ORDERED: ATORVASTATIN 40 MG TABLET PO SCH (22:00)
== END 2021-05-01 12:15 | disposition left against medical advice (07) | DRG 303 ==
LOC: ER 21:13 → TELE 05-01 01:26
PROVIDERS: ADMIT Nurse Practitioner Acute Care; ATTEND Internal Medicine
DX: I25.119 Atherosclerotic heart disease of native coronary artery with unspecified angina pectoris (principal); E78.5 Hyperlipidemia, unspecified; I25.2 Old myocardial infarction; I27.20 Pulmonary hypertension, unspecified; I10 Essential (primary) hypertension; Z95.5 Presence of coronary angioplasty implant and graft; R79.89 Other specified abnormal findings of blood chemistry
CPT/HCPCS: 36415; 71045-TC; 80048-TC; 80061-TC; 83735-TC; 83880; 84100-TC; 84484-TC; 85025-TC; 87081-TC; C9803; G0378; Q9967